=== PATIENT | female | born 1985 | race American Indian/Alaskan Native ===

== ENCOUNTER 2016-04-05 17:32 | Inpatient (IN) | payer OTHER ==
[~2016-04-05 17:32] MED LIST: NACL 0.9% IR ONE; WATER FOR IRRIG STERILE IR ONE
[2016-04-05 18:12] LABS: Hematocrit 36.5 % (30.3-42.9); Hemoglobin 12.2 gm/dl (10.1-14.3); Mean Corpuscular HGB Conc 33 % (30-34); Mean Corpuscular Hemoglobin 28 pg (28-32); Mean Corpuscular Volume 84 fl (79-97); Red Blood Count 4.33 M/mm3 (3.65-5.03); Red Cell Distribution Width 14.1 % (13.2-15.2); White Blood Count 7.4 K/mm3 (4.5-11.0)
[2016-04-05 18:15] LABS: Bilirubin,Urine NEG (Negative); Blood,Urine SM (Negative); Ketones,Urine NEG (Negative); Leukocyte Esterase,Urine NEG (Negative); Mucus,Urine FEW /HPF; Nitrite,Urine NEG (Negative); Urobilinogen,Urine < 2.0 mg/dL (<2.0)
[2016-04-05 18:35] LABS: Alanine Aminotransferase 41 units/L (7-56); Lactate Dehydrogenase 331 units/L (91-180)
[2016-04-05 19:23] LABS: Platelet Count 94 K/mm3 (140-440)
[2016-04-05] MEDS ORDERED: APRESOLINE IV PRN (19:57)
[2016-04-05] MEDS ORDERED: BENADRYL PO PRN (19:57)
[2016-04-05] MEDS ORDERED: DEEP SEA NS PRN (19:57)
[2016-04-05] MEDS ORDERED: NORMODYNE IV PRN ×2 (19:57→20:52)
[2016-04-05] MEDS ORDERED: ZOFRAN IV PRN ×2 (19:57→22:24)
[2016-04-05] MEDS ORDERED: LACTATED RINGERS 1,000 ML IV SCH ×2 (20:00→21:00)
[2016-04-05] MEDS ORDERED: CELESTONE SOLUSPAN IM SCH (20:00)
[2016-04-05] MEDS ORDERED: CALCIUM GLUCONATE IV ONE (20:53)
[2016-04-05] MEDS ORDERED: MAGNESIUM SULFATE 4GM/100ML 100 ML IV ONE (20:53)
[2016-04-05] MEDS ORDERED: MAGNESIUM SULFATE 40GM/1000ML 1,000 ML IV SCH (21:00)
--- NOTE | 2016-04-05 21:07 | History and Physical Report ---
History of Present Illness Date of examination: 04/05/16 Chief complaint: sent from clinic History of present illness: Pt is a 30 year old female primigravida ELENA 05/16/16 at 34w1d who presents with elevated blood pressures 140/90s in the office and lower extremity edema. She denies contractions, vaginal bleeding and leakage of fluid. She has had care at [facility] since 9 wks complicated by hyperemesis gravadrum, positive hepatitis B surface antigen with non-compliance with scheduled infectious disease appointments, and gestational diabetes A2 on 2.5 mg PO BID. She is GBS unknown. 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 History: hepatitis B (non-compliant, no ID referral ) Family/Genetic History: none Social history: - Obstetrical History Expected Date of Delivery: 05/16/16 Actual Gestation: 34 Week(s) 2 Day(s) : 1 Medications and Allergies Allergies Allergy/AdvReac Type Severity Reaction Status Date / Time No Known Allergies Allergy Unverified 04/05/16 17:58 Home Medications Medication Instructions Recorded Confirmed Last Taken Type Vit No.130/Iron/FA 1 each PO 04/06/16 04/06/16 History [ Tablet] glyBURIDE [Diabeta] 2.5 mg PO QAM 04/06/16 04/06/16 04/04/16 History Active Meds: Active Medications Betamethasone Acet/Betameth SodPhos (Celestone Soluspan) 12 mg IM Q24HR HAY Stop: 04/06/16 10:01 Last Admin: 04/05/16 20:24 Dose: 12 mg Diphenhydramine HCl (Benadryl) 25 mg PO Q6H PRN PRN Reason: Itching Hydralazine HCl (Apresoline) 5 mg IV Q30MIN PRN PRN Reason: Hypertension Lactated Ringer's (Lactated Ringers) 1,000 mls @ 125 mls/hr IV DIRECT HAY Magnesium Sulfate (Magnesium Sulfate 40gm/1000ml) 1,000 mls @ 25 mls/hr IV TITR HAY PRN Reason: 1 GM/HR Stop: 04/06/16 20:59 Magnesium Sulfate (Magnesium Sulfate 4gm/100ml) 100 mls @ 300 mls/hr IV ONCE ONE Stop: 04/05/16 21:12 Labetalol HCl (Normodyne) 20 mg IV ONCE PRN PRN Reason: Hypertension Stop: 04/05/16 23:59 Ondansetron HCl (Zofran) 4 mg IV Q6H PRN PRN Reason: Nausea And Vomiting Sodium Chloride (Deep Sea) 2 spray NS Q4H PRN PRN Reason: Congestion - Vital Signs Vital signs: Vital Signs Pulse BP 98 H 172/99 04/05/16 18:09 04/05/16 18:09 Temp Pulse Resp BP Pulse Ox 89 167/107 97 04/05/16 21:01 04/05/16 21:01 04/05/16 21:01 - Physical Exam Breasts: Positive: deferred Abdomen: Positive: soft (gravid ) Uterus: Positive: enlarged (gravid ) Extremities: Positive: edema - Obstetrical FHR: category 1 Uterine Contraction Monitor Mode: External Uterine Contraction Pattern: Absent Uterine Tone Measurement Phase: Resting Results Result Diagrams: 04/05/16 Unknown 04/05/16 Unknown Abnormal lab results 04/05/16 04/05/16 Range/Units Unknown Unknown Plt Count 94 L (140-440) K/mm3 Creatinine 0.6 L (0.7-1.2) mg/dL Lactate Dehydrogenase 331 H (91-180) units/L All other labs normal. Assessment and Plan A: IUP at 34w1d Severe Preeclampsia vs HELLP syndrome; Thrombocytopenia Hepatitis B P: Admit to labor and delivery. PIH panel, DIC panel, CBC. Betamethasone BPP/limited ultrasound MFM consult Closely monitor maternal and status.
[2016-04-05] MEDS ORDERED: NACL 0.9% 500 ML 500 ML IV ONE (21:26)
[2016-04-05] MEDS ORDERED: PEPCID IV ONE (21:27)
[2016-04-05] MEDS ORDERED: BICITRA PO ONE (21:27)
[2016-04-05] MEDS ORDERED: REGLAN IV ONE (21:27)
--- NOTE | 2016-04-05 21:33 | Event Note ---
Date: 04/05/16 news editor MD spoke with [facility] on-call physician Dr Espinoza who recommends delivery if pt stable once labs results. Prepare for primary delivery.
[2016-04-05] MEDS ORDERED: PITOCin/NS 20 UNIT/1000ML DRIP 1,000 ML IV SCH (22:00)
[2016-04-05] MEDS ORDERED: ANCEF/STERILE WATER 2 GM/20 ML 20 ML IV NR (22:00)
[2016-04-05] MEDS ORDERED: LACTATED RINGERS 1,000 ML IV NR (22:00)
[2016-04-05 22:05] LABS: Basophils % (Auto) 0.3 % (0.0-1.8); Eosinophils % (Auto) 0.5 % (0.0-4.3); Hematocrit 35.5 % (30.3-42.9); Hemoglobin 11.6 gm/dl (10.1-14.3); Mean Corpuscular HGB Conc 33 % (30-34); Mean Corpuscular Hemoglobin 28 pg (28-32); Mean Corpuscular Volume 86 fl (79-97); Red Blood Count 4.16 M/mm3 (3.65-5.03); Red Cell Distribution Width 14.3 % (13.2-15.2); White Blood Count 8.6 K/mm3 (4.5-11.0)
[2016-04-05 22:07] LABS: Platelet Count 97 K/mm3 (140-440)
[2016-04-05 22:14] LABS: INR 0.91 (0.87-1.13)
[2016-04-05 22:15] LABS: Partial Thromboplastin Time 23.6 Sec. (24.2-36.6)
[2016-04-05] MEDS ORDERED: DILAUDID IV PRN (22:24)
[2016-04-05] MEDS ORDERED: PHENERGAN PR PRN (22:24)
[2016-04-05] MEDS ORDERED: NARCAN 0.4 MG/1 ML IV PRN (22:24)
[2016-04-05] MEDS ORDERED: PHENERGAN PO PRN (22:24)
[2016-04-05 22:28] LABS: Alanine Aminotransferase 44 units/L (7-56); Albumin 2.9 g/dL (3.9-5); Albumin/Globulin Ratio 0.9 %; Alkaline Phosphatase 164 units/L (35-129); Anion Gap 21 mmol/L; Bilirubin,Total 0.3 mg/dL (0.1-1.2); Blood Urea Nitrogen 6 mg/dL (7-17); Calcium 8.6 mg/dL (8.4-10.2); Carbon Dioxide 18 mmol/L (22-30); Chloride 100.2 mmol/L (98-107); Glucose 87 mg/dL (65-100); Potassium 3.6 mmol/L (3.6-5.0); Sodium 136 mmol/L (137-145); Total Protein 6.2 g/dL (6.3-8.2)
--- NOTE | 2016-04-05 22:28 | Anesthesia Consultation ---
Anesthesia Consult and Med Hx Date of service: 04/05/16 - Airway Anesthetic Teeth Evaluation: Good ROM Head & Neck: Adequate Mental/Hyoid Distance: Adequate Mallampati Class: Class II Intubation Access Assessment: Good - Pulmonary Exam CTA: Yes - Cardiac Exam Cardiac Exam: RRR - Pre-Operative Health Status ASA Pre-Surgery Classification: ASA3 Proposed Anesthetic Plan: Spinal - Pre-Anesthesia Comment Pre-Anesthesia Comments: Patient 34 weeks GA, with HELLP syndrome on MagSulphate. Patient platelet 97. She has h/o Hep B and Gestational DM. patient for scheduled primary c/section. - Pulmonary Hx Smoking: No Hx Asthma: No COPD: No Hx Pneumonia: No - Cardiovascular System Hx Hypertension: No - Central Nervous System Hx Seizures: No Hx Psychiatric Problems: No - Endocrine Hx Renal Disease: No Hx End Stage Renal Disease: No Hx Liver Disease: Yes Hx Hypothyroidism: No Hx Hyperthyroidism: No - Hematic Hx Anemia: No Hx Sickle Cell Disease: No - Other Systems Hx Alcohol Use: No
[2016-04-05] MEDS ORDERED: MORPHINE ONE (22:31)
[2016-04-05] MEDS ORDERED: SODIUM CHLORIDE FLUSH SYRINGE 10 ML IV PRN (23:00)
--- NOTE | 2016-04-06 00:52 | Event Note ---
Date: 04/06/16 Late entry. Procedure delayed by urgent section for non-reassuring heart tones on another patient. Continue close observation of maternal and status with plan for delivery.
--- NOTE | 2016-04-06 00:58 | Procedure Note ---
OB Delivery Note - Delivery Date of Delivery: 04/06/16 Surgeon: PIA ELKINS Estimated blood loss: other (800 mL) - Vaginal Delivery position: OA - Section Preop diagnosis: other (Severe Preeclampsia/HELLP Syndrome ) section procedure: section, primary low transverse Disposition: PACU Complications: none Narrative: Please see operative note. - Infant A at 1 minute: 7 at 5 minutes: 9 Gender: Female (2722g (6lb 0oz))
--- NOTE | 2016-04-06 00:58 | Operative Report ---
Operative Report Operative Report: Date of procedure: 04/06/16 Preoperative diagnosis: 1) IUP at 34w2d 2) Severe Preeclampsia 3) Hepatitis B 4 ) Gestational Diabetes Postoperative diagnosis: Same Procedure: Primary low transverse section Surgeon: Angle Najera M.D. Anesthesia: Spinal Findings: 1) Viable female , Apgars 7 and 9, weight 2722g, (6 lb 0 oz) 2) Normal-appearing uterus ovaries and tubes Estimated blood loss: 800 mL IV fluids: 1000 mL Urine output: 200 mL, clear at the end of the procedure Drains: Wheat to gravity Specimens: Placenta to pathology Complications: None. Counts correct x 3 Disposition: Stable to PACU Indication for procedure: Pt is a 30 year old primigravida at 34w2d who presents with severe preeclampsia. The decision was made to proceed with primary delivery. Operation in detail: After the risks, benefits, alternatives and complications were explained to the patient she gave informed consent for the procedure. She was subsequently taken to the operating room where spinal anesthesia was noted to be adequate. She was subsequently placed in the dorsal supine position with leftward tilt and prepped and draped in a normal sterile fashion. heart tones were noted to be in the 140s prior to incision. A timeout was performed. A Pfannenstiel skin incision was made with the knife and carried down to the layer of the fascia with the Bovie. The fascia was incised in the midline and the fascial incision was extended bilaterally with the Bovie. The fascia was extended digitally. The rectus muscles were then in the midline and partially transected for adequate visualization. The peritoneum was then entered bluntly. The peritoneal incision was then stretched. An Nate self- retaining retractor was placed for visualization. The bladder blade was placed. The vesicouterine peritoneum was grasped with smooth pickups and incised with Metzenbaum scissors. Metzenbaum scissors were used to extend the incision bilaterally. The bladder flap was then created digitally and the bladder blade was replaced. A transverse incision was made in the lower uterine segment with a knife and extended bilaterally with the bandage scissors. The head was delivered without difficulty followed by shoulders and body. was bulb suctioned at delivery. The cord was clamped and cut and the was handed to NICU staff in attendance. Cord blood was collected. The placenta was then delivered manually. The uterus was cleared of all clots and debris. The hysterotomy was then reapproximated with 0 Vicryl in a running locked fashion. A second layer of the same suture was used in imbricating fashion. Direct pressure and an additional figure of eight of 0-Vicryl was also used to obtain hemostasis. The hysterotomy was inspected and hemostasis was noted. The Nate self-retaining retractor was removed. The gutters were irrigated and cleared of all clots and debris. The hysterotomy was again inspected and noted to be hemostatic. Surgicel was placed over the hysterotomy. The rectus muscles were then reapproximated with 2-0 Vicryl in an interrupted fashion and the cut surfaces were covered with Surgicel. The fascia was reapproximated with 0 Vicryl in a running fashion. The skin was reapproximated with 4-0 Vicryl in a subcuticular fashion. The incision was then covered with steri strips and a pressure dressing. The procedure was then ended. The patient tolerated the procedure well and was taken to the PACU in stable condition. All instrument, lap, and needle counts were correct 3.
[2016-04-06] MEDS ORDERED: ZOFRAN ONE (02:17)
[2016-04-06] MEDS ORDERED: DEMEROL IV PRN (03:10)
[2016-04-06] MEDS ORDERED: MYLICON PO PRN (04:13)
[2016-04-06] MEDS ORDERED: PHENERGAN PR PRN (04:13)
[2016-04-06] MEDS ORDERED: MORPHINE IV PRN ×2 (04:13)
[2016-04-06] MEDS ORDERED: PITOCin/NS 20 UNIT/1000ML DRIP 1,000 ML IV SCH (04:13)
[2016-04-06] MEDS ORDERED: SODIUM CHLORIDE FLUSH SYRINGE 10 ML IV PRN (04:13)
[2016-04-06] MEDS ORDERED: MILK OF MAGNESIA PO PRN (04:13)
[2016-04-06] MEDS ORDERED: LANSINOH TP PRN (04:13)
[2016-04-06] MEDS ORDERED: NARCAN 0.4 MG/1 ML IV PRN (04:13)
[2016-04-06] MEDS ORDERED: ZOFRAN IV PRN (04:13)
[2016-04-06] MEDS ORDERED: TYLENOL PO PRN (04:13)
[2016-04-06] MEDS ORDERED: TUCKS PAD TP PRN (04:13)
--- NOTE | 2016-04-06 07:19 | Post Anesthesia Evaluation ---
- Post Anesthesia Evaluation Patient Participated: Yes Airway Patent: Yes Stable Respiratory Function: Yes Nausea/Vomiting: No Temp > 96.8F: Yes Pain Manageable: Yes Adequeate Hydration: Yes Anesthesia Complications: No Block Receding Appropriately: Yes Patient on Ventilator: No
--- NOTE | 2016-04-06 07:48 | Ultrasound Report ---
BIOPHYSICAL PROFILE: History: well-being. Technique: Transabdominal ultrasound with Doppler interrogation. 2 - breathing movements 2 - movements 2 - posture and tone 2 - Qualitative amniotic fluid volume 8 - TOTAL SCORE OF POSSIBLE 8 Heart Rate (bpm) 141
[2016-04-06 08:18] LABS: Hematocrit 35.7 % (30.3-42.9); Mean Corpuscular HGB Conc 34 % (30-34); Mean Corpuscular Hemoglobin 29 pg (28-32); Mean Corpuscular Volume 85 fl (79-97); Platelet Count 111 K/mm3 (140-440); Red Cell Distribution Width 14.3 % (13.2-15.2); White Blood Count 14.8 K/mm3 (4.5-11.0)
[2016-04-06 08:37] LABS: Alanine Aminotransferase 48 units/L (7-56); Lactate Dehydrogenase 493 units/L (91-180)
--- NOTE | 2016-04-06 09:53 | Ultrasound Report ---
OB ULTRASOUND: HISTORY: well-being, placental location, estimated weight. TECHNIQUE: Transabdominal ultrasound with Doppler interrogation. Gestation: humphries Position: cephalic Amniotic Fluid: WNL (7-24 cm) MILENA = 15.8 cm Placenta: anterior Placental Grade: I Heart Rate: 141 BPM BPD: 8.8 cm = 35 w 5 d HC: 31.7 cm = 35 w 5 d AC: 32.9 cm = 36 w 6 d FL: 7.0 cm = 35 w 5 d HC/AC Ratio: 0.96 Cephalic Index: 83.3 Estimated Weight: 2902 grams Clinical age = 34 w 1 d EDC: 05-16-17 US Gest. Age = 36 w 0 d EDC: 05-03-16
[2016-04-06] MEDS: FEOSOL PO SCH (21:34)
[2016-04-07] MEDS ORDERED: PITOCin/NS 20 UNIT/1000ML DRIP 1,000 ML IV SCH (01:00)
[2016-04-07] MEDS ORDERED: BOOSTRIX IM ONE (06:00)
--- NOTE | 2016-04-07 09:00 | Progress Note ---
Assessment and Plan O: BP 138-142/82-85 plts down from 111-97 A: Stable POD #1 Primary C/S HELLP A2 diabetic P: Continue PP orders Subjective - Subjective Date of service: 04/07/16 Patient reports: appetite normal, voiding normally, pain well controlled, flatus , ambulating normally, other (Denies WALTER, blurred vision or epigastric pain. ) [place]: doing well, in NICU Objective - Vital Signs Latest vital signs: Vital Signs Temp Pulse Pulse Resp BP BP 04/07/16 08:38 98.4 F 74 20 148/96 04/07/16 03:00 98.3 F 88 18 138/82 04/07/16 00:40 98.6 F 94 H 18 124/69 04/06/16 22:00 98.3 F 89 18 122/74 04/06/16 20:10 98.7 F 96 H 18 142/85 04/06/16 18:00 98.2 F 74 18 140/75 04/06/16 16:08 98.5 F 100 H 18 142/73 Intake and Output 04/06/16 04/07/16 04/07/16 22:59 06:59 14:59 Intake Total 1300 980 Output Total 2700 2200 Balance -1400 -1220 Intake: IV 1000 500 Magnesium Sulfate 40Gm/ 200 100 1000ML 1,000 ml @ 1 GM/HR 25 mls/hr IV TITR HAY Rx #:[id number] PITOCin/NS 20 UNIT/1000ML 800 400 DRIP 1,000 ML @ 125 mls/ hr IV TITR HAY Rx#: [id number] Oral 120 Intake, Free Water 180 480 Output: Urine 2700 2200 Indwelling Catheter 2700 2200 Other: Total, Intake Amount 120 Total, Output Amount 900 600 # Bowel Movements 0 - Exam Breasts: Present: normal Lungs: Present: Normal air movement Abdomen: Present: normal appearance, soft, distention (mild), normal bowel sounds Vulva: both: normal Uterus: Present: normal, firm, fundal height below umbilicus (2 below U, ML). Absent: bogginess, tenderness Incision: Present: normal, dry, intact, dressed - Labs Labs: Abnormal lab results 04/05/16 04/06/16 04/07/16 Range/Units 21:51 18:20 00:00 Magnesium 4.6 H 4.6 H (1.7-2.3) mg/dL Crossmatch See Detail 04/07/16 Range/Units 05:47 Magnesium 3.4 H (1.7-2.3) mg/dL Crossmatch
[2016-04-07] MEDS: FEOSOL PO SCH ×2 (09:19→21:44)
[2016-04-07] MEDS: PRENATAL VITAMIN PO SCH (09:20)
[2016-04-07] MEDS: PERCOCET 5/325 PO PRN ×2 (09:20→21:37)
--- NOTE | 2016-04-07 11:00 | Progress Note ---
Subjective Date of service: 04/07/16 Interval history: 1st POD after Patient is in the bed, comfortable. pain is well controlled with pain meds. Ambulated well. No residual neurological deficit. No anesthesia complications Objective - Constitutional Vitals: Vital Signs - 12hr 04/07/16 04/07/16 04/07/16 00:40 03:00 08:38 Temperature 98.6 F 98.3 F 98.4 F Pulse Rate [ 94 H 88 From Monitor] Pulse Rate [ 74 Right Radial] Respiratory 18 18 20 Rate Blood Pressure 124/69 138/82 [Left Arm] Blood Pressure 148/96 [Right Arm] - Labs CBC & Chem 7: 04/06/16 07:51 04/06/16 07:51 Labs: Abnormal lab results 04/05/16 04/06/16 04/07/16 Range/Units 21:51 18:20 00:00 Magnesium 4.6 H 4.6 H (1.7-2.3) mg/dL Crossmatch See Detail 04/07/16 Range/Units 05:47 Magnesium 3.4 H (1.7-2.3) mg/dL Crossmatch
[2016-04-08] MEDS: PRENATAL VITAMIN PO SCH (10:26)
[2016-04-08] MEDS: FEOSOL PO SCH ×2 (10:26→21:36)
--- NOTE | 2016-04-08 12:57 | Progress Note ---
Assessment and Plan - Patient Problems (1) Severe preeclampsia Current Visit: Yes Status: Acute Plan to address problem: doing well consider discharge home tomorrow if remains stable Subjective - Subjective Date of service: 04/08/16 Interval history: Patient has completed her magnesium prophylaxis. She is tolerating regular diet. Pain is controlled. Infant is in the NICU. Patient reports: appetite normal, voiding normally, pain well controlled [place]: in NICU Objective - Vital Signs Latest vital signs: Vital Signs Temp Pulse Pulse Resp BP 04/08/16 08:00 99.2 F 93 H 20 144/80 04/08/16 04:15 98.9 F 98 H 18 144/78 04/07/16 23:55 99.1 F 96 H 18 140/72 04/07/16 19:35 98.2 F 100 H 18 150/84 04/07/16 15:48 98.6 F 76 20 144/74 Intake and Output 04/07/16 04/08/16 04/08/16 22:59 06:59 14:59 Intake Total 240 240 Balance 240 240 Intake: Oral 240 Intake, Free Water 240 Other: Total, Intake Amount 240 # Voids Void 1 2 - Exam Abdomen: Present: normal appearance Uterus: Present: normal, firm Incision: Present: normal, dry
[2016-04-08] MEDS: PERCOCET 5/325 PO PRN (15:31)
--- NOTE | 2016-04-08 16:09 | Discharge Summary ---
Providers - Providers Date of Admission: 04/05/16 21:12 Date of discharge: 04/09/16 Attending physician: PIA ELKINS Primary care physician: PIA ELKINS Hospitalization Reason for admission: section, other (severe PIH) Delivery: Procedure: primary low transverse Procedure details: s/p primary c/s Episiotomy: none Laceration: none Incision: normal, dry, intact Other procedures: none complications: none Discharge diagnosis: other (PIH), delivery baby: female Condition at discharge: Good Disposition: DISCHARGED TO HOME OR SELFCARE - Discharge Diagnoses (1) Severe preeclampsia Status: Acute (2) Status post primary low transverse section Status: Acute Plan - Discharge Medications Prescriptions: Docusate Sodium [Colace] 100 mg PO BID PRN #60 capsule PRN Reason: Constipation Ibuprofen [Motrin] 800 mg PO Q8HR PRN #60 tablet PRN Reason: Pain NIFEdipine XL [Procardia Xl] 60 mg PO QDAY #30 tablet Oxycodone HCl/Acetaminophen [Percocet 7.5/325 mg] 1 each PO Q6HR PRN #45 tablet PRN Reason: Pain - Provider Discharge Summary Activity: routine, no sex for 6 weeks, no heavy lifting 4 weeks, no strenuous exercise Diet: routine Instructions: routine Additional instructions: [] Smoking cessation referral if applicable(refer to patient education folder for contact #) [] Refer to [facility] Booklet Call your doctor immediately for: * Fever > 100.5 * Heavy vaginal bleeding ( >1 pad per hour) * Severe persistent headache * Shortness of breath * Reddened, hot, painful area to leg or breast * Drainage or odor from incision. * Keep incision clean and dry at all times and follow doctor's instructions regarding bathing/showering
[2016-04-09] MEDS ORDERED: NORVASC PO SCH (10:00)
[2016-04-09] MEDS ORDERED: AMBIEN PO PRN (15:27)
--- NOTE | 2016-04-09 19:45 | Event Note ---
Date: 04/09/16 Pt started on po bp meds today 7.5 of [facility]. will hold d/c until tomorrow pm , to watch BP
[2016-04-09] MEDS: FEOSOL PO SCH (21:40)
[2016-04-10 09:17] VITALS: BP 141/88
== END 2016-04-10 10:30 | disposition home or self-care (01) | DRG 765 ==
LOC: TRG 17:32 → LD 20:04 → TRG 21:11 → UNDOADMIN 21:12 → LD 21:12 → OB 04-06 05:48
PROVIDERS: ADMIT Obstetrics & Gynecology; ATTEND Obstetrics & Gynecology
PROC: 10D00Z1 Extraction of Products of Conception, Low, Open Approach (ICD-10-PCS; principal; 2016-04-06)
DX: O60.14X0 Preterm labor third trimester with preterm delivery third trimester, not applicable or unspecified (principal); O98.42 Viral hepatitis complicating childbirth; B19.10 Unspecified viral hepatitis B without hepatic coma; O99.113 Other diseases of the blood and blood-forming organs and certain disorders involving the immune mechanism complicating pregnancy, third trimester; D69.6 Thrombocytopenia, unspecified; O76 Abnormality in fetal heart rate and rhythm complicating labor and delivery; O14.14 Severe pre-eclampsia complicating childbirth; Z3A.34 34 weeks gestation of pregnancy; Z37.0 Single live birth; Z90.49 Acquired absence of other specified parts of digestive tract; O24.425 Gestational diabetes mellitus in childbirth, controlled by oral hypoglycemic drugs
CPT/HCPCS: 36415; 76816; 76819; 80053; 81001; 82565; 82962; 83615; 83735; 84450; 84460; 84550; 85025; 85027; 85379; 85384; 85610; 85730; 86850; 86900; 86901; 86920; 88307; 99211; G0463; J0360; J0690; J0702; J2175; J2270; J2405; J2590; J2765; J3475; J7120